=== PATIENT | female | born 1960 | race Caucasian/White ===

== ENCOUNTER 2018-12-22 17:40 | Emergency (ER) | payer MEDICAID, OTHER ==
[~2018-12-22] VITALS: Ht 160 cm; Wt 58.1 kg
[2018-12-22] MEDS ORDERED: ONDANSETRON HCL 4 MG/2 ML VIAL ONE (18:24)
[2018-12-22] MEDS ORDERED: HYDROmorphone HCL 2 MG/ML VL IV ONE ×3 (18:30→23:15)
[2018-12-22] MEDS ORDERED: ONDANSETRON HCL 4 MG/2 ML VIAL IV ONE (18:30)
[2018-12-22] MEDS ORDERED: NICOTINE 14 MG/24HR TOPICAL PATCH TD ONE (21:30)
[2018-12-22 22:26] VITALS: BP 180/88
== END 2018-12-22 23:04 | disposition home or self-care (01) ==
LOC: ER 17:49
DX: S82.301A Unspecified fracture of lower end of right tibia, initial encounter for closed fracture (principal); S82.401A Unspecified fracture of shaft of right fibula, initial encounter for closed fracture; Z88.6 Allergy status to analgesic agent; W18.39XA Other fall on same level, initial encounter; Y93.89 Activity, other specified; Y99.8 Other external cause status; Y92.89 Other specified places as the place of occurrence of the external cause
CPT/HCPCS: 71045; 72192; 73590; 96374; 96375; 96376; 99285; J1170; J2405